=== PATIENT | female | born 1955 | race Caucasian/White ===

== ENCOUNTER 2020-03-07 08:05 | Inpatient (IN) ==
[2020-03-07] MEDS ORDERED: ONDANSETRON 4 MG/2 ML VIAL IV ONE (08:39)
--- NOTE | 2020-03-07 08:46 | XRay Report ---
INDICATION: left knee swelling/injury/pain TECHNIQUE: AP and lateral femur COMPARISON: None. FINDINGS: Previous left total hip arthroplasty. There is a spiral fracture of the left femoral diaphysis six bending to the distal metaphysis. Fracture begins caudal to the left femoral stem. There is mild posterior angulation and anterior displacement. IMPRESSION: 1. Spiral fracture of the left femoral diaphysis extending to the distal metaphysis 2. Anterior displacement and posterior angulation 3. Left total hip arthroplasty. Fracture begins caudal to the left femoral stem Interpreted and Authenticated by: Cornel Rai 03/07/20
[2020-03-07] MEDS ORDERED: 0.9 % SODIUM CHLORIDE 1,000 ML IV ONE (08:47)
[2020-03-07] MEDS: HYDROmorphone 0.5 MG/0.5 ML SYRINGE IV PRN ×5 (08:56→21:10)
--- NOTE | 2020-03-07 08:59 | XRay Report ---
INDICATION: Pre-op TECHNIQUE: AP semiupright chest x-ray COMPARISON: None FINDINGS:Bilateral shoulder arthroplasty Lungs:Lungs are negative. No focal pulmonary parenchymal infiltrate or mass Heart, vascular:No significant cardiomegaly. Pulmonary vascularity is normal. No pulmonary edema or pulmonary congestion Mediastinum, bella:No mediastinal widening. No hilar mass Pleura:No pleural fluid. No pleural-based mass or calcification Skeletal:Negative. IMPRESSION: Negative AP chest x-ray Interpreted and Authenticated by: Cornel Rai 03/07/20
--- NOTE | 2020-03-07 09:17 | Emergency Department Note ---
Lower Extremity Injury HPI General Chief Complaint: Extremity Injury, Lower Stated Complaint: left knee pain after jumping into pool Time Seen by Provider: 03/07/20 08:39 Source: patient, EMS and RN notes reviewed Mode of arrival: EMS Limitations: no limitations History of Present Illness HPI Narrative: Narrative: This patient injured her left distal femur jumping into a pool this morning. She does have a displaced fracture of the distal femur. No other injuries. She ate at 6:00 this morning and has no significant health issues. She has had some joint replacements including the left hip. complaint: leg injury Onset (ago): minute(s) Injury: Left: thigh Type of Injury: blunt Place: other Severity: moderate Improves with: rest Worsens with: movement Context: jumping Other symptoms: none Related Data Home Medications Medication Instructions Recorded Confirmed acetaminophen 650 mg 1,300 mg PO QDAY tab 12/20/19 03/07/20 tablet,extended release ibuprofen-diphenhydramine citrate 2 cap PO QHS 12/20/19 03/07/20 200 mg-38 mg tablet multivitamin with iron-mineral 1 tab PO DAILY 12/20/19 03/07/20 naproxen sodium 220 mg tablet 440 mg PO ONCE PRN tab 12/20/19 03/07/20 nabumetone 750 mg tablet 750 mg PO BID 01/05/20 03/07/20 Previous Rx's Medication Instructions Recorded oxybutynin chloride 5 mg 5 mg PO QDAY #30 tab 01/05/20 tablet,extended release 24 hr Allergies Allergy/AdvReac Type Severity Reaction Status Date / Time No Known Drug Allergies Allergy Verified 03/07/20 08:08 Review of Systems ROS ROS Narrative: Narrative: All systems ED: reviewed and negative except as stated. PFSH Narrative Patient History Narrative: Narrative: Medical/Surgical/Family History All Active Problems (Updated 03/08/20 @ 07:12 by Emmanuel Weeks MD) Closed femur fracture (Acute) Incontinence (Acute) Encounter to establish care (Acute) Medicare welcome visit (Acute) History of tubal ligation (Acute) History of replacement of both shoulder joints (Acute) History of total hip replacement (Acute ~2018) Osteoarthritis (Acute) Arthritis (Acute) Medical History (Updated 03/08/20 @ 07:12 by Emmanuel Weeks MD) Arthritis (Acute) Encounter to establish care (Acute) Incontinence (Acute) Medicare welcome visit (Acute) Osteoarthritis (Acute) Surgical History History of replacement of both shoulder joints (Acute) 2019, 2016 History of total hip replacement (Acute ~2018) History of tubal ligation (Acute) Family History Mother Dementia Father Dementia Social History Smoking Status: Former smoker Alcohol Intake Frequency: a few times a week Substance Use: does not use Exam Narrative Narrative: Narrative: General Limitations: no limitations Head Head: Present atraumatic, normocephalic and normal inspection Eye Eye: Present normal appearance and EOMI; Absent scleral icterus and conjunctival injection ENT ENT: Present normal exam, normal oropharynx and mucous membranes moist Neck Neck: Present normal inspection and full ROM Chest Chest: Present normal inspection and symmetric chest wall rise Respiratory Respiratory: Present normal lung sounds bilaterally Cardiovascular Cardiovascular: Present regular rate, normal rhythm and normal heart sounds Adbominal Abdominal: Present soft; Absent distention and tenderness Extremities Extremities: Present other (Left distal thigh is swollen and diffusely tender. No breaks in the skin. Good pulses in the feet.) Neurological Neurological: Present alert Psychiatric Psychiatric: Present normal affect Skin Skin: Present warm (WNL) and dry; Absent diaphoresis Course Vital Signs Vital signs: Vital Signs Temperature 97.7 F 03/07/20 08:06 Pulse Rate 64 03/07/20 08:06 Respiratory Rate 20 03/07/20 08:06 Blood Pressure 138/74 03/07/20 08:06 Pulse Oximetry (%) 98 03/07/20 08:06 Temperature 98.9 F 03/08/20 03:29 Pulse Rate 87 03/08/20 03:29 Respiratory Rate 16 03/08/20 03:29 Blood Pressure 102/56 03/08/20 03:29 Pulse Oximetry (%) 95 03/08/20 03:29 MDM MDM Narrative Medical decision making narrative: Narrative: I discussed this case with Dr. Britton the orthopedist and Dr. Artis the hospitalist will admit the patient to the hospital. Lab Data Lab results reviewed: Yes I reviewed the patient's lab results. Result diagrams: 03/08/20 06:00 03/07/20 09:00 Labs: Lab Results 03/07/20 03/07/20 Range/Units 09:00 09:00 WBC 6.4 (4.5-11.0) K/mcL RBC 4.24 (4.00-5.20) M/mcL Hgb 13.5 (12.0-15.0) g/dL Hct 40.9 (36.0-48.0) % MCV 96.5 (80.0-100.0) fL MCH 31.8 (26.0-34.0) pg MCHC 33.0 (31.0-36.0) g/dL RDW 12.7 (11.5-14.5) % Plt Count 231 (140-440) K/mcL MPV 9.6 (7.4-10.4) fL Neut % (Auto) 58.4 (38.0-78.0) % Lymph % (Auto) 29.5 (15.0-49.0) % [place] % (Auto) 9.7 (1.0-12.0) % Eos % (Auto) 1.9 (0.0-7.0) % Baso % (Auto) 0.5 (0.0-2.0) % Lymph # (Auto) 1.89 (1.50-4.80) K/mcL [place] # (Auto) 0.62 (0.10-0.90) K/mcL Eos # (Auto) 0.12 (0.00-0.70) K/mcL Baso # (Auto) 0.03 (0.00-0.20) K/mcL Absolute Neutrophils 3.74 (1.80-8.00) K/mcL Sodium 138 (133-145) mmol/L Potassium 3.9 (3.3-5.1) mmol/L Chloride 101 (96-108) mmol/L Carbon Dioxide 24 (22-30) mmol/L Anion Gap 13.0 (8.0-16.0) BUN 18 (8-23) mg/dL Creatinine 0.6 (0.6-1.1) mg/dL GFR Calculation 95 Glucose 120 H (70-105) mg/dL Calcium 8.6 (8.6-10.4) mg/dL Total Bilirubin 0.4 (0.1-1.0) mg/dL AST 27 (<32) U/L ALT 25 (<40) U/L Alkaline Phosphatase 52 (39-117) U/L Total Protein 6.3 (5.9-8.4) gm/dL Albumin 3.9 (3.2-5.2) gm/dL Globulin 2.4 (2.2-3.7) gm/dL Albumin/Globulin Ratio 1.6 (1.0-2.3) Radiology Data Radiology results reviewed: Yes I reviewed the patient's radiology results. Radiology results narrative: She has displaced left femur fracture distally. Discharge Plan Patient/Caregiver Discharge Instructions Pt seen by FOOD AND NUTRITION SERVICES SUPERVISOR/PA only: No Clinical Impression: Closed femur fracture Patient Disposition: Xfer As Inpt ([facility]) Condition: Fair Discharge Date/Time: 03/07/20 10:27
[2020-03-07 09:55] LABS: Basophils # (Auto) 0.03 K/mcL (0.00-0.20); Basophils % (Auto) 0.5 % (0.0-2.0); Eosinophils # (Auto) 0.12 K/mcL (0.00-0.70); Eosinophils % (Auto) 1.9 % (0.0-7.0); Hematocrit 40.9 % (36.0-48.0); Hemoglobin 13.5 g/dL (12.0-15.0); Lymphocytes # (Auto) 1.89 K/mcL (1.50-4.80); Lymphocytes % (Auto) 29.5 % (15.0-49.0); Mean Cell Volume 96.5 fL (80.0-100.0); Mean Platelet Volume 9.6 fL (7.4-10.4); Monocytes # (Auto) 0.62 K/mcL (0.10-0.90); Monocytes % (Auto) 9.7 % (1.0-12.0); Neutrophils % (Auto) 58.4 % (38.0-78.0); Platelet Count 231 K/mcL (140-440); RBC 4.24 M/mcL (4.00-5.20); Red Cell Distribution Width 12.7 % (11.5-14.5); WBC 6.4 K/mcL (4.5-11.0)
--- NOTE | 2020-03-07 10:02 | Internal Med History&Physical ---
HPI History of Present Illness Patient information: Note initiated : 03/07/20 at 10:01 am Service Date, if different from initiated Date: [] Patient: Demi Gaspar a 65 y/o F admitted on for Lt Knee Pain After Jumping In Pool. Chief Complaint: Left femur fracture following a fall History of present illness: Ms. Gaspar is a 65 year old F fairly healthy with history of degenerative joint disease. Patient was at the pool and jumped at the deep end however her left leg got caught on the second ledge and ended up with left knee and thigh pain. She was brought into the ER initial work-up was consistent with spinal left femoral diaphysis fracture extending to metaphysis. Orthopedics was consulted and Advised patient to be admitted to the hospitalist service while she will undergo operative intervention later this evening. At the time of my evaluation patient is alert and oriented. She denies active distress. Pain in good control following Dilaudid. She denies lightheadedness dizziness or precipitating events prior to fall. It was a purely mechanical injury due to her left foot getting caught during the jump in the pool. She denies recent hospitalization/history of cardiac stent/history of CVA or diabetes or kidney disease. Review of systems A 10 point review system was performed and is negative except for ones discussed above PFSH PFSH All Active Problems Incontinence (Acute) Encounter to establish care (Acute) Medicare welcome visit (Acute) History of tubal ligation (Acute) History of replacement of both shoulder joints (Acute) History of total hip replacement (Acute ~2018) Osteoarthritis (Acute) Arthritis (Acute) Medical History Arthritis (Acute) Encounter to establish care (Acute) Incontinence (Acute) Medicare welcome visit (Acute) Osteoarthritis (Acute) Surgical History History of replacement of both shoulder joints (Acute) 2019, 2015 History of total hip replacement (Acute ~2018) History of tubal ligation (Acute) Family History Mother Dementia Father Dementia Social History marital status: occupational status: retired smoking status: Never smoker alcohol intake frequency: a few times a week substance use type: does not use MEDS/ALLERGIES Home Medications and Allergies Home Medications Medication Instructions Recorded Confirmed Type acetaminophen 650 mg 1,300 mg PO QDAY tab 12/20/19 03/07/20 History tablet,extended release ibuprofen-diphenhydramine citrate 2 cap PO QHS 12/20/19 03/07/20 History 200 mg-38 mg tablet multivitamin with iron-mineral PO 12/20/19 01/09/20 History naproxen sodium 220 mg tablet 440 mg PO ONCE PRN tab 12/20/19 03/07/20 History nabumetone 750 mg tablet 750 mg PO BID 01/05/20 03/07/20 History oxybutynin chloride 5 mg 5 mg PO QDAY #30 tab 01/05/20 03/07/20 Rx tablet,extended release 24 hr Allergies Allergy/AdvReac Type Severity Reaction Status Date / Time No Known Drug Allergies Allergy Verified 03/07/20 08:08 EXAM Constitutional Vitals: Temp Pulse Resp BP Pulse Ox 97.7 F 78 20 141/79 97 03/07/20 08:06 03/07/20 09:31 03/07/20 08:06 03/07/20 09:31 03/07/20 09:31 Minimal anxiety but alert oriented Head normocephalic Oral cavity moist No ear nose discharge Eye movement symmetrical Neck supple no lymphadenopath Regular rhythm Nonlabored breathing Nondistended nontender abdomen Left lower extremities significantly painful/swollen mid thigh region along with ecchymosis. No lymphedema/clubbing Skin no suspicious lesion Psych no hallucination Neuro normal higher function DATA Data Completed and Pending Labs: Labs from last 24 hours 03/07/20 03/07/20 09:00 09:00 WBC 6.4 RBC 4.24 Hgb 13.5 Hct 40.9 MCV 96.5 MCH 31.8 MCHC 33.0 RDW 12.7 Plt Count 231 MPV 9.6 Neut % (Auto) 58.4 Lymph % (Auto) 29.5 [place] % (Auto) 9.7 Eos % (Auto) 1.9 Baso % (Auto) 0.5 Lymph # (Auto) 1.89 [place] # (Auto) 0.62 Eos # (Auto) 0.12 Baso # (Auto) 0.03 Absolute Neutrophils 3.74 Sodium Pending Potassium Pending Chloride Pending Carbon Dioxide Pending Anion Gap Pending BUN Pending Creatinine Pending GFR Calculation Pending Glucose Pending Calcium Pending Total Bilirubin Pending AST Pending ALT Pending Alkaline Phosphatase Pending Total Protein Pending Albumin Pending Globulin Pending Albumin/Globulin Ratio Pending A/P Narrative A/P Narrative: * Left femur fracture-orthopedic consulted. Will undergo operative interventions later today. Continue NPO. * Pain management on as needed opioids * Preop risk evaluation-based on RCR[employer] [place] heart association risk stratification patient is a low to moderate risk operative candidate. No prior history of CVA/CAD/diabetes/renal failure or CHF. However surgery and anesthesia specific risks will be addressed by individual care providers. * Full code * prophylaxis SCDs Plan * Inpatient admission * Orthopedic consult * Keep n.p.o. * Pain management * Review postop Time Spent With Patient Time: Total time spent is greater than 50% in coordination of care (as documented) at patient's floor/unit and/or counseling patient:
[2020-03-07 10:37] LABS: ALT/SGPT 25 U/L (<40); AST/SGOT 27 U/L (<32); Albumin 3.9 gm/dL (3.2-5.2); Albumin/Globulin Ratio 1.6 (1.0-2.3); Alkaline Phosphatase 52 U/L (39-117); Bilirubin,Total 0.4 mg/dL (0.1-1.0); Blood Urea Nitrogen 18 mg/dL (8-23); Calcium 8.6 mg/dL (8.6-10.4); Carbon Dioxide 24 mmol/L (22-30); Chloride 101 mmol/L (96-108); Globulin 2.4 gm/dL (2.2-3.7); Glomerular Filtration Rate 95; Glucose 120 mg/dL (70-105)
[2020-03-07] MEDS ORDERED: POTASSIUM CHLORIDE 40 MEQ in DEXTROSE 5% IN WATER 500 ML IV PRN (10:38)
[2020-03-07] MEDS ORDERED: ONDANSETRON 4 MG ODT TABLET SL PRN (10:38)
[2020-03-07] MEDS ORDERED: HYDROcodone/APAP 5/325MG TABLET PO PRN (10:38)
[2020-03-07] MEDS ORDERED: BISACODYL 10 MG SUPP.RECT PR PRN ×2 (10:38→18:08)
[2020-03-07] MEDS ORDERED: CALCIUM CHLORIDE 1,000 MG/10 ML SYRINGE IV PRN (10:38)
[2020-03-07] MEDS ORDERED: MAGNESIUM SULFATE 2 GM/50 ML BAG IV PRN (10:38)
[2020-03-07] MEDS ORDERED: ACETAMINOPHEN 325 MG TABLET PO PRN (10:38)
[2020-03-07] MEDS ORDERED: POLYETHYLENE GLYCOL 3350 17 GM PACKET PO PRN (10:38)
[2020-03-07] MEDS ORDERED: POTASSIUM CHLORIDE 20 MEQ PACKET PO PRN (10:38)
[2020-03-07] MEDS ORDERED: ACETAMINOPHEN 650 MG/65 ML BAG IV PRN (10:38)
[2020-03-07] MEDS: 0.9 % SODIUM CHLORIDE 1,000 ML IV SCH (11:44)
[2020-03-07] MEDS ORDERED: ceFAZolin 2 GM in DEXTROSE 5% IN WATER 50 ML IV SCH ×2 (13:30→18:15)
[2020-03-07] MEDS ORDERED: PROPOFOL 200 MG/20 ML VIAL IV ONE (15:24)
[2020-03-07] MEDS ORDERED: DEXAMETHASONE 10 MG/ML VIAL ONE (15:24)
[2020-03-07] MEDS ORDERED: fentaNYL 250 MCG/5 ML VIAL IV ONE (15:24)
[2020-03-07] MEDS ORDERED: ONDANSETRON 4 MG/2 ML VIAL ONE (15:24)
[2020-03-07] MEDS ORDERED: LIDOCAINE HCL/PF 100 MG/5 ML SYRINGE IV ONE (15:24)
[2020-03-07] MEDS ORDERED: KETAMINE 100 MG/ML ML ONE (15:24)
[2020-03-07] MEDS ORDERED: TRANEXAMIC ACID 1,000 MG/10 ML VIAL IV ONE ×3 (15:24→19:06)
[2020-03-07 15:53] LABS: Appearance,Urine CLEAR (Clear); Bilirubin,Urine Negative (Negative); Color,Urine YELLOW; Culture Indicated,Urine yes; Glucose,Urine (UA) Negative (Negative); Ketones,Urine 5 mg/dL (Negative); Leukocyte Esterase,Urine 250 /ug (Negative); Mucus,Urine FEW /hpf; Nitrate,Urine Negative (Negative); Protein,Urine 30 mg/dL (Negative); Specific Gravity,Urine 1.019 (1.000-1.035); Urine Blood Negative (Negative); Urine RBC 2 /hpf (0-1); Urine Squamous Epithelial Cell 1 /hpf (0-4); Urine Transitional Epi Cells < 1 /hpf (0-2); Urine WBC 14 /hpf (0-4); Urobilinogen,Urine Negative
[2020-03-07] MEDS: 0.9 % SODIUM CHLORIDE 10 ML SYRINGE IV SCH ×2 (16:05→22:29)
[2020-03-07] MEDS ORDERED: PROMETHAZINE 25 MG/ML VIAL IV PRN (17:50)
[2020-03-07] MEDS ORDERED: ONDANSETRON 4 MG/2 ML VIAL IV PRN (17:50)
[2020-03-07] MEDS ORDERED: IPRATROPIUM/ALBUTEROL 3 ML AMPUL.NEB NEB PRN (17:50)
[2020-03-07] MEDS ORDERED: ACETAMINOPHEN 1,000 MG/100 ML BAG IV ONE (17:50)
[2020-03-07] MEDS ORDERED: LACTATED RINGERS 250 ML IV PRN (17:50)
[2020-03-07] MEDS ORDERED: HYDROmorphone 0.5 MG/0.5 ML SYRINGE IV PRN (17:50)
[2020-03-07] MEDS ORDERED: NALOXONE HCL 0.4 MG/ML VIAL IV PRN (17:50)
[2020-03-07] MEDS ORDERED: diphenhydrAMINE 50 MG/ML VIAL IV PRN (17:50)
[2020-03-07] MEDS ORDERED: LACTATED RINGERS 1,000 ML IV SCH (18:00)
[2020-03-07] MEDS ORDERED: FLEETS ADULT ENEMA PR PRN (18:08)
[2020-03-07] MEDS ORDERED: morphine 4 MG/ML VIAL IV PRN (18:08)
[2020-03-07] MEDS ORDERED: MAGNESIUM HYDROXIDE 30 ML ORAL.SUSP PO PRN (18:08)
--- NOTE | 2020-03-07 18:08 | Brief Operative Note ---
Brief Operative Note Date of procedure: 03/07/20 Pre-op diagnosis: Left periprosthetic distal femur fracture, closed Post-op diagnosis: same Procedure: Open treatment internal fixation of closed Left periprosthetic comminuted distal femur fracture Grafts/Implants: Yes (Synthes distal femur locking plate with Arthrex fibertape cerclage proximal) Anesthesia: GLMA Findings: severe comminution, poor bone quality Complications: none Surgeon: Michael Britton [place] Leverman: Pravin Loaiza Estimated blood loss (cc): 500 Specimens Removed/Pathology: none sent Condition: stable Disposition: PACU
[2020-03-07] MEDS: MEPERIDINE 25 MG/ML SYRINGE IV PRN ×2 (18:55→19:13)
[2020-03-07] MEDS ORDERED: MEPERIDINE 50 MG/ML INJECTION ONE (19:00)
[2020-03-07] MEDS: fentaNYL 100 MCG/2 ML VIAL IV PRN ×2 (19:05→19:31)
[2020-03-07] MEDS: KETOROLAC 30 MG/ML VIAL IV PRN (20:13)
[2020-03-07] MEDS: ONDANSETRON 4 MG/2 ML VIAL IV PRN (20:17)
[2020-03-07] MEDS ORDERED: MELATONIN 3 MG TABLET PO PRN (21:00)
[2020-03-07] MEDS: LACTATED RINGERS 1,000 ML IV SCH (21:16)
[2020-03-07] MEDS: DOCUSATE SODIUM 100 MG CAPSULE PO SCH (21:17)
[2020-03-07] MEDS: SENNOSIDES 1 TABLET PO SCH (21:17)
[2020-03-07] MEDS: SENNOSIDES/DOCUSATE SODIUM 1 TAB TABLET PO SCH (21:17)
[2020-03-07] MEDS: ceFAZolin 1 GM VIAL IV SCH (22:29)
[2020-03-08] MEDS: ONDANSETRON 4 MG/2 ML VIAL IV PRN (00:20)
[2020-03-08] MEDS: LACTATED RINGERS 1,000 ML IV SCH ×3 (00:20→18:05)
[2020-03-08] MEDS: HYDROcodone/APAP 10/325MG TABLET PO PRN ×7 (00:26→23:55)
[2020-03-08] MEDS: BENZOCAINE/MENTHOL 1 LOZENGE PO PRN ×2 (00:47→10:20)
[2020-03-08] MEDS: KETOROLAC 30 MG/ML VIAL IV PRN ×2 (02:42→19:34)
[2020-03-08] MEDS: HYDROmorphone 0.5 MG/0.5 ML SYRINGE IV PRN (03:13)
--- NOTE | 2020-03-08 05:46 | XRay Report ---
INDICATION: left distal femur jo prosthetic fracture TECHNIQUE: Intraoperative fluoroscopy and spot films utilized during open reduction and internal fixation of left femoral fracture. 1.1 minutes fluoroscopy and 5.31 mGy exposure utilized IMPRESSION: Intraoperative fluoroscopy and spot films as above Interpreted and Authenticated by: Cornel Rai 03/08/20
[2020-03-08] MEDS: ceFAZolin 1 GM VIAL IV SCH ×2 (05:50→05:51)
--- NOTE | 2020-03-08 05:50 | XRay Report ---
INDICATION: left distal femur jo prosthetic orif TECHNIQUE: AP and crosstable lateral left femur COMPARISON: Preoperative evaluation dated 03/07/2020 FINDINGS: Status post open reduction internal fixation of left femoral diaphyseal spiral fracture. Plate and screw fixation. Alignment is anatomic IMPRESSION: Status post open reduction internal fixation of left femoral fracture. Interpreted and Authenticated by: Cornel Rai 03/08/20
[2020-03-08] MEDS: 0.9 % SODIUM CHLORIDE 1,000 ML IV SCH (05:55)
[2020-03-08] MEDS: 0.9 % SODIUM CHLORIDE 10 ML SYRINGE IV SCH ×3 (05:55→20:17)
[2020-03-08 06:53] LABS: Basophils # (Auto) 0.01 K/mcL (0.00-0.20); Basophils % (Auto) 0.1 % (0.0-2.0); Eosinophils # (Auto) 0.01 K/mcL (0.00-0.70); Eosinophils % (Auto) 0.1 % (0.0-7.0); Hematocrit 26.5 % (36.0-48.0); Hemoglobin 8.8 g/dL (12.0-15.0); Lymphocytes # (Auto) 1.44 K/mcL (1.50-4.80); Lymphocytes % (Auto) 16.2 % (15.0-49.0); Mean Cell Volume 97.4 fL (80.0-100.0); Mean Corpuscular HGB Conc 33.2 g/dL (31.0-36.0); Mean Platelet Volume 9.7 fL (7.4-10.4); Monocytes # (Auto) 1.05 K/mcL (0.10-0.90); Monocytes % (Auto) 11.8 % (1.0-12.0); Neutrophils % (Auto) 71.8 % (38.0-78.0); Platelet Count 198 K/mcL (140-440); RBC 2.72 M/mcL (4.00-5.20); Red Cell Distribution Width 12.8 % (11.5-14.5); WBC 8.9 K/mcL (4.5-11.0)
[2020-03-08 07:20] LABS: INR 1.1 (0.9-1.1); Prothrombin Time 14.5 sec (11.9-14.5)
--- NOTE | 2020-03-08 07:33 | Orthopedic Progress Note ---
SUBJECTIVE Subjective Patient information: Note initiated : 03/08/20 at 7:32 am Service Date, if different from initiated Date: [] Patient: Demi Gaspar 65 y/o F admitted on 03/07/20 for Lt Knee Pain After Jumping In Pool. Chief Complaint: Doing ok. Concerned about discharge plan. Constitutional Vitals: Vital Signs Temp Pulse Resp BP Pulse Ox 98.9 F 87 16 102/56 95 03/08/20 03:29 03/08/20 03:29 03/08/20 03:29 03/08/20 03:29 03/08/20 03:29 Period Temp Pulse Resp BP Sys/Mccallum Pulse Ox Last 24 Hr 97.1 F-99.7 F 63-92 - 100-168/48-135 94-100 Intake and Output 03/07/20 03/08/20 03/08/20 21:59 05:59 13:59 Intake Total 270 800 Output Total 400 Balance 270 400 Weight 207 lb 14.4 oz Intake & Output: Intake & Output 03/07/20 03/08/20 03/08/20 21:59 05:59 13:59 Intake Total 270 800 Output Total 400 Balance 270 400 Weight 207 lb 14.4 oz Intake: IV 150 Ancef 2 gm In Dextrose 5% in 50 Water 50 ml @ 100 mls/hr IV PREOP ANNA Rx#:[id number] Oral 120 800 Output: Urine Catheter Amount 400 Other: Meal Dinner Percent of Meal Consumed 50% Feeding Ability Assist with Tray Set Up Urine Appearance Clear Clear Uretheral (Heard) Clear Urine Color Pale Pale Uretheral (Heard) Bright Yellow Urine Odor Uretheral (Heard) Normal OBJ DATA Labs CBC & Chem 7: 03/08/20 06:00 03/07/20 09:00 Labs: Abnormal Lab Results 03/08/20 03/07/20 03/07/20 06:00 13:20 09:00 RBC 2.72 L Hgb 8.8 L Hct 26.5 L Lymph # (Auto) 1.44 L [place] # (Auto) 1.05 H Glucose 120 H Urine Protein 30 A Urine Ketones 5 A Ur Leukocyte Esterase 250 A Urine RBC 2 H Urine WBC 14 H Urine Mucus Few A Bandages c/d/i NVI-distal Meds: Medications Acetaminophen (Tylenol) 650 mg PO Q4-6HP PRN; Protocol PRN Reason: Per Pain Protocol/Fever > 101 Hydrocodone Bitart/Acetaminophen ([place] 5/325mg) 1 - 2 tab PO Q4HP PRN; Protocol PRN Reason: Per Pain Protocol Hydrocodone Bitart/Acetaminophen ([place] 10/325mg) 0 tab PO Q4HP PRN; Protocol PRN Reason: Per Pain Protocol Last Admin: 03/08/20 05:49 Dose: 1 tab Documented by: Bisacodyl (Dulcolax) 10 mg MT Q2-3DAYS PRN PRN Reason: Constipation Bisacodyl (Dulcolax) 10 mg MT Q2-3DAYS PRN PRN Reason: Constipation Docusate Sodium (Colace) 100 mg PO BID [facility] Last Admin: 03/07/20 21:17 Dose: Not Given Documented by: Hydromorphone HCl (Dilaudid) 0.25 - 0.5 mg IV Q4HP PRN; Protocol PRN Reason: Per Pain Protocol Last Admin: 03/08/20 03:13 Dose: 0.5 mg Documented by: Potassium Chloride 40 meq/ (Dextrose) 520 mls @ 130 mls/hr IV UD PRN PRN Reason: K+ = or < 3.5 Acetaminophen (Ofirmev) 650 mg in 65 mls @ 130 mls/hr IV Q6HP PRN; Protocol PRN Reason: Per Pain Protocol/Fever > 101 Magnesium Sulfate (Magnesium Sulfate) 2 gm in 50 mls @ 50 mls/hr IV UD PRN PRN Reason: MG = or < 1.7 Sodium Chloride (Sodium Chloride 0.9%) 1,000 mls @ 50 mls/hr IV .Q20H [facility] Stop: 03/09/20 22:37 Last Admin: 03/08/20 05:55 Dose: Not Given Documented by: Lactated Ringer's (Lactated Ringers) 1,000 mls @ 125 mls/hr IV .Q8H [facility] Last Admin: 03/08/20 00:20 Dose: 125 mls/hr Documented by: Iron Carb/Multivit/[place]/Folic Acid (Multivitamin W/Minerals) 1 tab PO DAILY [facility] Ketorolac Tromethamine (Toradol) 30 mg IV Q6HP PRN; Protocol PRN Reason: Per Pain Protocol Stop: 03/09/20 18:12 Last Admin: 03/08/20 02:42 Dose: 30 mg Documented by: Magnesium Hydroxide (Milk Of Magnesia) 30 ml PO BIDP PRN PRN Reason: Constipation Melatonin (Melatonin 3mg Tablet) 3 mg PO HSP PRN PRN Reason: Insomnia Morphine Sulfate (Morphine) 0 mg IV Q1HP PRN; Protocol PRN Reason: Per Pain Protocol Ondansetron HCl (Zofran Odt) 4 mg SL Q4-6HP PRN; Protocol PRN Reason: Nausea And Vomiting Ondansetron HCl (Zofran) 4 mg IV Q4-6HP PRN; Protocol PRN Reason: Nausea And Vomiting Last Admin: 03/08/20 00:20 Dose: 4 mg Documented by: Oxybutynin Chloride (Ditropan Xl) 5 mg PO QDAY [facility] Polyethylene Glycol (Miralax) 17 gm PO DAILYP PRN PRN Reason: Constipation Potassium Chloride (Klor-Con) 40 meq PO DAILYP PRN PRN Reason: K+ < 3.5 Senna (Senokot) 2 tab PO [facility] Last Admin: 03/07/20 21:17 Dose: Not Given Documented by: Senna/Docusate Sodium (Senna Plus Tablet) 1 tab PO HS [facility] Last Admin: 03/07/20 21:17 Dose: Not Given Documented by: Sodium Biphosphate/Sodium Phosphate (Fleets Adult) 1 dose MT Q3-4DAYS PRN PRN Reason: Constipation Sodium Chloride (Saline Flush) 10 ml IV Q8 ANNA Last Admin: 03/08/20 05:55 Dose: 10 ml Documented by: Throat Lozenges (Cepacol) 1 lozenge PO PRN PRN PRN Reason: Sore Throat Last Admin: 03/08/20 00:47 Dose: 1 lozenge Documented by: Warfarin Sodium (Coumadin Per Pharmacy) 1 order PO UD ANNA A/P Time Spent With Patient Time: Total time spent is greater than 50% in coordination of care (as documented) at patient's floor/unit and/or counseling patient:
[2020-03-08 07:58] LABS: ALT/SGPT 21 U/L (<40); AST/SGOT 46 U/L (<32); Albumin 2.9 gm/dL (3.2-5.2); Albumin/Globulin Ratio 1.8 (1.0-2.3); Alkaline Phosphatase 34 U/L (39-117); Bilirubin,Direct < 0.2 mg/dL (<0.3); Bilirubin,Total 0.2 mg/dL (0.1-1.0); Blood Urea Nitrogen 17 mg/dL (8-23); Calcium 8.1 mg/dL (8.6-10.4); Carbon Dioxide 24 mmol/L (22-30); Chloride 101 mmol/L (96-108); Globulin 1.6 gm/dL (2.2-3.7); Glomerular Filtration Rate 90; Glucose 130 mg/dL (70-105); Lactate Dehydrogenase 179 U/L (135-225); Phosphorous 2.4 mg/dL (2.5-4.5); Triglycerides 65 mg/dL (<150); Uric Acid 2.9 mg/dL (2.5-8.0)
[2020-03-08] MEDS: MULTIVIT,THER IRON,CA,FA & MIN 1 TABLET PO SCH (09:01)
[2020-03-08] MEDS: DOCUSATE SODIUM 100 MG CAPSULE PO SCH ×2 (09:01→20:16)
[2020-03-08] MEDS: OXYBUTYNIN CHLORIDE 5 MG TAB.XL.24H PO SCH (09:02)
[2020-03-08] MEDS ORDERED: FLU VACC QS2020-21(6MOS UP)/PF 60 MCG/0.5 ML SYRINGE IM ONE (10:00)
--- NOTE | 2020-03-08 10:31 | Internal Med Progress Note ---
SUBJECTIVE Subjective Patient information: Note initiated : 03/08/20 at 10:29 am Service Date, if different from initiated Date: [] Patient: Demi Gaspar a 65 y/o F admitted on 03/07/20 for Lt Knee Pain After Jumping In Pool. History of present illness: Ms. Gaspar is a 65 year old F fairly healthy with history of degenerative joint disease. Patient was at the pool and jumped at the deep end however her left leg got caught on the second ledge and ended up with left knee and thigh pain. She was brought into the ER initial work-up was consistent with spinal left femoral diaphysis fracture extending to metaphysis. Orthopedics was consulted and Advised patient to be admitted to the [facility] while she will undergo operative intervention later this evening. At the time of my evaluation patient is alert and oriented. She denies active distress. Pain in good control following Dilaudid. She denies lightheadedness dizziness or precipitating events prior to fall. It was a purely mechanical injury due to her left foot getting caught during the jump in the pool. She denies recent hospitalization/history of cardiac stent/history of CVA or diabetes or kidney disease. -postop day 1. Doing well. No overnight events. Pain in good control. Anticipate SNF transfer in 48 hours. Case management coordinating. Continue directed therapies and postoperative care per orthopedics. Constitutional Vitals: Vital Signs Temp Pulse Resp BP Pulse Ox 98.1 F 93 H 16 92/50 95 03/08/20 08:46 03/08/20 08:46 03/08/20 08:46 03/08/20 08:46 03/08/20 08:46 Period Temp Pulse Resp BP Sys/Mccallum Pulse Ox Last 24 Hr 97.1 F-99.7 F 63-93 - 92-154/48-135 94-100 Intake and Output 03/07/20 03/08/20 03/08/20 21:59 05:59 13:59 Intake Total 270 800 480 Output Total 400 Balance 270 400 480 Weight 94.302 kg alert oriented no anxiety No significant postoperative site swelling or pain Nonlabored breathing Intake & Output: Intake & Output 03/07/20 03/08/20 03/08/20 21:59 05:59 13:59 Intake Total 270 800 480 Output Total 400 Balance 270 400 480 Weight 94.302 kg Intake: IV 150 Ancef 2 gm In Dextrose 5% in 50 Water 50 ml @ 100 mls/hr IV PREOP ANNA Rx#:[id number] Oral 120 800 480 Output: Urine Catheter Amount 400 Other: Meal Dinner Breakfast Percent of Meal Consumed 50% 100% Feeding Ability Assist with Tray Set Up Independent Urine Appearance Clear Clear Uretheral (Heard) Clear Clear Urine Color Pale Pale Uretheral (Heard) Bright Yellow Bright Yellow Urine Odor Uretheral (Heard) Normal OBJ DATA Labs CBC & Chem 7: 03/08/20 06:00 03/08/20 06:00 Labs: Abnormal Lab Results 03/08/20 03/08/20 03/07/20 06:00 06:00 13:20 RBC 2.72 L Hgb 8.8 L Hct 26.5 L Lymph # (Auto) 1.44 L [place] # (Auto) 1.05 H Glucose 130 H Calcium 8.1 L Phosphorus 2.4 L AST 46 H Alkaline Phosphatase 34 L Total Protein 4.5 L Albumin 2.9 L Globulin 1.6 L Urine Protein 30 A Urine Ketones 5 A Ur Leukocyte Esterase 250 A Urine RBC 2 H Urine WBC 14 H Urine Mucus Few A 03/07/20 09:00 RBC Hgb Hct Lymph # (Auto) [place] # (Auto) Glucose 120 H Calcium Phosphorus AST Alkaline Phosphatase Total Protein Albumin Globulin Urine Protein Urine Ketones Ur Leukocyte Esterase Urine RBC Urine WBC Urine Mucus Meds: Medications Acetaminophen (Tylenol) 650 mg PO Q4-6HP PRN; Protocol PRN Reason: Per Pain Protocol/Fever > 101 Hydrocodone Bitart/Acetaminophen ([place] 5/325mg) 1 - 2 tab PO Q4HP PRN; Protocol PRN Reason: Per Pain Protocol Hydrocodone Bitart/Acetaminophen ([place] 10/325mg) 0 tab PO Q4HP PRN; Protocol PRN Reason: Per Pain Protocol Last Admin: 03/08/20 10:06 Dose: 1 tab Documented by: Bisacodyl (Dulcolax) 10 mg OK Q2-3DAYS PRN PRN Reason: Constipation Bisacodyl (Dulcolax) 10 mg OK Q2-3DAYS PRN PRN Reason: Constipation Docusate Sodium (Colace) 100 mg PO BID [facility] Last Admin: 03/08/20 09:01 Dose: 100 mg Documented by: Hydromorphone HCl (Dilaudid) 0.25 - 0.5 mg IV Q4HP PRN; Protocol PRN Reason: Per Pain Protocol Last Admin: 03/08/20 03:13 Dose: 0.5 mg Documented by: Potassium Chloride 40 meq/ (Dextrose) 520 mls @ 130 mls/hr IV UD PRN PRN Reason: K+ = or < 3.5 Acetaminophen (Ofirmev) 650 mg in 65 mls @ 130 mls/hr IV Q6HP PRN; Protocol PRN Reason: Per Pain Protocol/Fever > 101 Magnesium Sulfate (Magnesium Sulfate) 2 gm in 50 mls @ 50 mls/hr IV UD PRN PRN Reason: MG = or < 1.7 Sodium Chloride (Sodium Chloride 0.9%) 1,000 mls @ 50 mls/hr IV .Q20H [facility] Stop: 03/09/20 22:37 Last Admin: 03/08/20 05:55 Dose: Not Given Documented by: Lactated Ringer's (Lactated Ringers) 1,000 mls @ 125 mls/hr IV .Q8H [facility] Last Admin: 03/08/20 00:20 Dose: 125 mls/hr Documented by: Iron Carb/Multivit/[place]/Folic Acid (Multivitamin W/Minerals) 1 tab PO DAILY [facility] Last Admin: 03/08/20 09:01 Dose: 1 tab Documented by: Ketorolac Tromethamine (Toradol) 30 mg IV Q6HP PRN; Protocol PRN Reason: Per Pain Protocol Stop: 03/09/20 18:12 Last Admin: 03/08/20 02:42 Dose: 30 mg Documented by: Magnesium Hydroxide (Milk Of Magnesia) 30 ml PO BIDP PRN PRN Reason: Constipation Melatonin (Melatonin 3mg Tablet) 3 mg PO HSP PRN PRN Reason: Insomnia Morphine Sulfate (Morphine) 0 mg IV Q1HP PRN; Protocol PRN Reason: Per Pain Protocol Ondansetron HCl (Zofran Odt) 4 mg SL Q4-6HP PRN; Protocol PRN Reason: Nausea And Vomiting Ondansetron HCl (Zofran) 4 mg IV Q4-6HP PRN; Protocol PRN Reason: Nausea And Vomiting Last Admin: 03/08/20 00:20 Dose: 4 mg Documented by: Oxybutynin Chloride (Ditropan Xl) 5 mg PO QDAY [facility] Last Admin: 03/08/20 09:02 Dose: 5 mg Documented by: Polyethylene Glycol (Miralax) 17 gm PO DAILYP PRN PRN Reason: Constipation Potassium Chloride (Klor-Con) 40 meq PO DAILYP PRN PRN Reason: K+ < 3.5 Senna (Senokot) 2 tab PO [facility] Last Admin: 03/07/20 21:17 Dose: Not Given Documented by: Senna/Docusate Sodium (Senna Plus Tablet) 1 tab PO [facility] Last Admin: 03/07/20 21:17 Dose: Not Given Documented by: Sodium Biphosphate/Sodium Phosphate (Fleets Adult) 1 dose OK Q3-4DAYS PRN PRN Reason: Constipation Sodium Chloride (Saline Flush) 10 ml IV Q8 [facility] Last Admin: 03/08/20 05:55 Dose: 10 ml Documented by: Throat Lozenges (Cepacol) 1 lozenge PO PRN PRN PRN Reason: Sore Throat Last Admin: 03/08/20 10:20 Dose: 1 lozenge Documented by: Warfarin Sodium (Coumadin Per Pharmacy) 1 order PO [facility] Warfarin Sodium (Coumadin) 5 mg PO ONCE@1400 ONE Stop: 03/08/20 14:01 A/P Narrative A/P Narrative: * Left femur fracture-postop day 1. Managed by orthopedics. Continue PT OT/case management coordinate SNF transfer * Pain management -as per orthopedics * DVT prophylaxis per orthopedics on Coumadin * Full code Plan * Continue postop care per orthopedics * Pain management/inpatient rehab * SNF transfer coordination per case management Time Spent With Patient Time: Total time spent is greater than 50% in coordination of care (as documented) at patient's floor/unit and/or counseling patient: QUALITY VTE Deep Vein Thrombosis/Pulmonary Embolism Present on Admission: No
--- NOTE | 2020-03-08 12:57 | Operative Note ---
DATE OF OPERATION: 03/07/2020 PREOPERATIVE DIAGNOSIS: Left closed periprosthetic distal femur fracture. POSTOPERATIVE DIAGNOSIS: Left closed periprosthetic distal femur fracture. PROCEDURE PERFORMED: Open treatment internal fixation of a left comminuted closed periprosthetic distal femur fracture, placing a Synthes distal femur locking plate with Arthrex suture tape cerclage. SURGEON: Michael Britton M.D. HOME INSPECTOR: Pravin Loaiza M.D. ANESTHESIA: General. DRAINS: None. SPECIMENS: None. COMPLICATIONS: None. ESTIMATED BLOOD LOSS: 500 mL. POSTOPERATIVE CONDITION: Stable. INDICATIONS: This is a 65-year-old female who has a history of a left total hip arthroplasty, who was getting ready to jump into the pool and awkwardly twisted her left leg and felt a snap and had severe pain and inability to bear weight. She was taken to the Emergency Department. X-ray showed a comminuted distal femur fracture extending almost up to her hip prosthesis. FINDINGS AT SURGERY: There was severe comminution with poor quality bone. Post implantation showed acceptable fracture alignment with stable fixation. PROCEDURE IN DETAIL: The patient had been seen preoperatively and informed consent had been obtained after discussion of risks and benefits of surgery, risks including but not limited to bleeding, possibly requiring transfusion, infection, possibly requiring implant removal and prolonged IV antibiotics, injury to nerves, blood vessels, other surrounding structures, anesthetic risks; nonunion or malunion of the fracture, failure of hardware fixation; possibility of needing further surgery. She understood these risks and wished to proceed. The correct operative site was marked and the patient was taken to the operating room, general anesthesia induced. The patient was then carefully transferred onto the fracture table and the right lower extremity was flexed and placed in a leg bills and carefully padded. The left lower extremity was placed into a boot with traction gently applied. The left leg and hip were then carefully prepped and draped in normal sterile fashion using an Ioban shower curtain drape. Timeout was performed, verifying patient name, operative site, and plan. Fluoroscopy was brought in to verify the extent of the fracture and then we started our incision distally at the lateral side of the knee. We started up about [address] and then obtained hemostasis with Bovie cautery. We continued down onto the IT band and this was split as well with Bovie. We then started splitting through the vastus lateralis muscle to get down onto the fracture and a large fracture hematoma was suctioned. We exposed the fracture site and at this point, realized this was even more comminuted than initially appeared on x-ray. We tried a 12-hole plate to see if this would give us adequate length and it did not appear to overlap the total hip stem enough so I went to a 14-hole. This did appear to give us adequate overlap of the hip stem. We then began trying to reduce the fracture. Due to the multiple fracture lines and fragments, and different muscles pulling on the different fragments, and her poor bone quality, this made reduction and placement of the plate in an acceptable position very difficult. It took quite some time using multiple different clamps and eventually getting the plate to sit as flush as possible along the lateral femur. She did have a very sharp flare to her metaphysis, which did not fit the plate optimally. We ended up getting a screw in the central hole of the distal cluster of the plate and verified we were in satisfactory position, both on AP and lateral view. I then began reducing the fracture and plate together with multiple clamps and then went up proximally, extending our excision until I had exposed nearly all of the plate proximally. I then adjusted the plate until I had it centered over the bone on the lateral view and then started clamping the plate to the bone there as well. Once I had good position of the plate on the bone of the distal fragment and the proximal fragment and I placed a screw into the proximal shaft to hold that, we then set about to reducing the comminuted fragment of the mid shaft. This was challenging again because of the poor quality of bone and the tendency to fragment, but once I had clamps holding things acceptably, I then began filling screw holes distally at first filling the distal cluster and leaving the posterior holes of the distal cluster empty for concern of a protruding too far posteriorly. I continued filling holes proximally until I got to the area of comminution that was so significant that there was no reasonable fixation. At that point, then I chose to place a FiberTape cerclage from Arthrex. We passed this around the fracture fragments and then, according to their technique, did the double wrap and then cinched this down to 60 pounds of pressure. This reduced the comminuted fragments to the plate nicely. We then tied these with 4 alternating half-hitches and cut. I then went proximal and started filling holes proximally. I was able to get 3 bicortical screws in a row just distal to the tip of the prosthesis. The distal most of these 3 was kind of just at the edge of the fracture line; however, so I then continued doing unicortical screws and was able to do 3 more unicortical screws. I did pay careful attention not to have these contacting the hip stem and I did leave the very proximal hole empty to try and decrease the stress riser at the tip of the plate. I did go ahead and reinforce this proximally with another cerclage FiberTape from Arthrex, again, with the double wrapping and tensioning the 60 pounds and then tying. At this point then I checked x-rays of AP and lateral of the proximal and distal and mid fracture. This appeared to have satisfactory position with the hardware. Those images were saved. I then irrigated copiously with IrriSept, after a minute irrigated copiously with saline. We then used a running #1 Vicryl starting in the middle of the IT band split and running this with locking proximally. I tied and cut and then went distally the same way. We then did a final IrriSept irrigation, after a minute final saline irrigation and then 2-0 Monocryl was used for subcu and hina for skin. Xeroform and sterile dressing were applied. The patient was then [facility] and awakened, extubated, and transferred to recovery in stable condition. BJB:juinor Job ID: [id number] Doc ID: [id number] Michael Britton MD
[2020-03-08] MEDS ORDERED: WARFARIN 5 MG TABLET PO ONE (14:00)
[2020-03-08] MEDS: SENNOSIDES 1 TABLET PO SCH (20:16)
[2020-03-08] MEDS: SENNOSIDES/DOCUSATE SODIUM 1 TAB TABLET PO SCH (20:17)
[2020-03-09] MEDS: 0.9 % SODIUM CHLORIDE 1,000 ML IV SCH (02:11)
[2020-03-09] MEDS: LACTATED RINGERS 1,000 ML IV SCH (02:11)
[2020-03-09] MEDS: 0.9 % SODIUM CHLORIDE 10 ML SYRINGE IV SCH (05:32)
[2020-03-09] MEDS: KETOROLAC 30 MG/ML VIAL IV PRN ×2 (05:33→13:35)
[2020-03-09] MEDS: HYDROcodone/APAP 10/325MG TABLET PO PRN ×3 (05:34→13:36)
[2020-03-09 06:24] LABS: Basophils # (Auto) 0.03 K/mcL (0.00-0.20); Basophils % (Auto) 0.6 % (0.0-2.0); Eosinophils # (Auto) 0.13 K/mcL (0.00-0.70); Eosinophils % (Auto) 2.4 % (0.0-7.0); Hematocrit 26.1 % (36.0-48.0); Hemoglobin 8.6 g/dL (12.0-15.0); Lymphocytes % (Auto) 23.9 % (15.0-49.0); Mean Cell Volume 100.8 fL (80.0-100.0); Mean Platelet Volume 9.4 fL (7.4-10.4); Monocytes # (Auto) 0.61 K/mcL (0.10-0.90); Monocytes % (Auto) 11.2 % (1.0-12.0); Neutrophils % (Auto) 61.9 % (38.0-78.0); Platelet Count 151 K/mcL (140-440); RBC 2.59 M/mcL (4.00-5.20); Red Cell Distribution Width 13.1 % (11.5-14.5); WBC 5.5 K/mcL (4.5-11.0)
--- NOTE | 2020-03-09 06:26 | XRay Report ---
INDICATION: Interval Change TECHNIQUE: AP portable upright chest x-ray COMPARISON: Previous examination dated 03/07/2020 FINDINGS:Bilateral shoulder arthroplasty Lungs:Lungs are negative. No focal pulmonary parenchymal infiltrate or mass Heart, vascular:No significant cardiomegaly. Pulmonary vascularity is normal. No pulmonary edema or pulmonary congestion Mediastinum, bella:No mediastinal widening. No hilar mass Pleura:No pleural fluid. No pleural-based mass or calcification Skeletal:Negative. IMPRESSION: 1. No acute abnormality 2. No significant interval change since 03/07/2020 Interpreted and Authenticated by: Cornel Rai 03/09/20
[2020-03-09 07:17] LABS: Prothrombin Time 13.7 sec (11.9-14.5)
[2020-03-09 07:19] LABS: ALT/SGPT 24 U/L (<40); AST/SGOT 64 U/L (<32); Albumin 3.2 gm/dL (3.2-5.2); Albumin/Globulin Ratio 1.7 (1.0-2.3); Alkaline Phosphatase 36 U/L (39-117); Bilirubin,Direct < 0.2 mg/dL (<0.3); Bilirubin,Total 0.3 mg/dL (0.1-1.0); Blood Urea Nitrogen 12 mg/dL (8-23); Carbon Dioxide 27 mmol/L (22-30); Chloride 98 mmol/L (96-108); Globulin 1.9 gm/dL (2.2-3.7); Glomerular Filtration Rate 95; Glucose 97 mg/dL (70-105); Lactate Dehydrogenase 216 U/L (135-225); Phosphorous 2.5 mg/dL (2.5-4.5); Triglycerides 65 mg/dL (<150)
--- NOTE | 2020-03-09 09:27 | Discharge Summary ---
Discharge Provider Provider Patient information: Note initiated : 03/09/20 at 9:24 am Service Date, if different from initiated Date: [] Patient: Demi Gaspar a 65 y/o F admitted on 03/07/20 for Lt Knee Pain After Jumping In Pool. Discharge diagnosis * Left femur fracture-postop day 2. Discharging as per recommendation of orthopedics to SNF for continued post operative/hospitalization rehab. Continue DVT prophylaxis as per orthopedics * Pain management -continue as per orthopedics * Likely osteoporosis-patient will need follow-up with outpatient primary care physician for evaluation of osteoporosis with DEXA scan and possible bisphosphonate with calcium * DVT prophylaxis per orthopedics on Coumadin ' Brief hospital course History of present illness: Ms. Gaspar is a 65 year old F fairly healthy with history of degenerative joint disease. Patient was at the pool and jumped at the deep end however her left leg got caught on the second ledge and ended up with left knee and thigh pain. She was brought into the ER initial work-up was consistent with spinal left femoral diaphysis fracture extending to metaphysis. Orthopedics was consulted and Advised patient to be admitted to the hospitalist service while she will undergo operative intervention later this evening. At the time of my evaluation patient is alert and oriented. She denies active distress. Pain in good control following Dilaudid. She denies lightheadedness dizziness or precipitating events prior to fall. It was a purely mechanical injury due to her left foot getting caught during the jump in the pool. She denies recent hospitalization/history of cardiac stent/history of CVA or diabetes or kidney disease. -postop day 1. Doing well. No overnight events. Pain in good control. Anticipate SNF transfer in 48 hours. Case management coordinating. Continue directed therapies and postoperative care per orthopedics. 03/09-patient doing well. No overnight events. Ongoing physical therapy. Transferring to [facility] for continued posthospitalization rehab. Continue follow-up with orthopedics and maintain postop instructions and recommendations as per orthopedics Date of admission: 03/07/20 10:27 Discharge date: 03/09/20 Primary care physician: Rand Theodore DO Consults: 03/07/20 Consult to Physician [CONS] Stat Comment: Consulting Provider: Renny Collazo Reason For Exam: Physician to Consult Consult to Physician [CONS] Stat Comment: Consulting Provider: Michael Britton Reason For Exam: Physician to Consult Discharge Meds Discharge Medications Home Medications acetaminophen 650 mg tablet,extended release 1,300 mg PO QDAY tab 12/20/19 [History Confirmed 03/07/20 Last Taken 03/06/20 09:00 1300 mg.] ibuprofen-diphenhydramine citrate 200 mg-38 mg tablet 2 cap PO QHS 12/20/19 [History Confirmed 03/07/20 Last Taken Unknown] multivitamin with iron-mineral 1 tab PO DAILY 12/20/19 [History Confirmed 1 05/08/19 Last Taken 03/06/20 09:00 1 tab] naproxen sodium 220 mg tablet 440 mg PO ONCE PRN tab 12/20/19 [History Confirmed 03/07/20 Last Taken 03/06/20 09:00 220 mg.] nabumetone 750 mg tablet 750 mg PO BID 01/05/20 [History Confirmed 03/07/20 Last Taken 01/29/20 09:00 750 mg.] oxybutynin chloride 5 mg tablet,extended release 24 hr 5 mg PO QDAY #30 tab 01/05/20 [Rx Confirmed 03/07/20 Last Taken 03/06/20 09:00] COURSE Hospital Course Hospital course: . Discharge diagnosis: . Time Spent with Patient Time attestation: Total time spent providing and/or coordinating discharge services: EXAM Constitutional Vitals: Temp Pulse Resp BP Pulse Ox 98.1 F 81 16 96/57 97 03/09/20 07:05 03/09/20 07:05 03/09/20 07:05 03/09/20 07:05 03/09/20 07:05 Discharge Data Data Completed and Pending Labs on day of discharge: Labs from last 24 hours 03/09/20 03/09/20 03/09/20 05:38 05:38 05:37 WBC 5.5 RBC 2.59 L Hgb 8.6 L Hct 26.1 L MCV 100.8 H MCH 33.2 MCHC 33.0 RDW 13.1 Plt Count 151 MPV 9.4 Neut % (Auto) 61.9 Lymph % (Auto) 23.9 [place] % (Auto) 11.2 Eos % (Auto) 2.4 Baso % (Auto) 0.6 Lymph # (Auto) 1.30 L [place] # (Auto) 0.61 Eos # (Auto) 0.13 Baso # (Auto) 0.03 Absolute Neutrophils 3.38 PT 13.7 INR 1.0 Sodium 133 Potassium 4.3 Chloride 98 Carbon Dioxide 27 Anion Gap 8.0 BUN 12 Creatinine 0.6 GFR Calculation 95 Glucose 97 Uric Acid 3.0 Calcium 8.0 L Phosphorus 2.5 Magnesium 2.0 Total Bilirubin 0.3 Direct Bilirubin < 0.2 GGT 10 AST 64 H ALT 24 Alkaline Phosphatase 36 L Lactate Dehydrogenase 216 Total Protein 5.1 L Albumin 3.2 Globulin 1.9 L Albumin/Globulin Ratio 1.7 Triglycerides 65 Discharge Plan Patient/Caregiver Discharge Instructions Activity: increase activity as tolerated Diet: Regular Diet Activity Restrictions/Additional Instructions: Postoperative care as per orthopedics PT OT at SNF DVT prophylaxis as per orthopedics on Coumadin Follow-up primary care physician in 2 weeks for evaluation of osteoporosis/DEXA scan/consideration of bisphosphonates and calcium supplements Prescriptions: No Action nabumetone 750 mg tablet 750 mg PO BID RF: 0 oxybutynin chloride 5 mg tablet extended release 24hr 5 mg PO QDAY Qty: 30 RF: 4 acetaminophen [Tylenol 8 Hour] 650 mg tablet extended release 1,300 mg PO QDAY RF: 0 multivitamin with iron-mineral 1 tab PO DAILY RF: 0 naproxen sodium [Aleve] 220 mg tablet 440 mg PO ONCE PRN (Reason: Inflammation) RF: 0 ibuprofen-diphenhydramine cit [Advil PM] 200-38 mg tablet 2 cap PO QHS RF: 0 Follow Up Plan Patient Disposition: Xfer SNF Prognosis: Fair Rehab Potential: Fair I certify that the patient requires SNF services: Yes Overall status at discharge: patient is progressing back to baseline Discharge Orders: Discharge Order (Routine); Ordered 03/09/20 Ordered By: Renny PINZON VTE Deep Vein Thrombosis/Pulmonary Embolism Present on Admission: No
[2020-03-09] MEDS: DOCUSATE SODIUM 100 MG CAPSULE PO SCH (09:54)
[2020-03-09] MEDS: MULTIVIT,THER IRON,CA,FA & MIN 1 TABLET PO SCH (09:54)
[2020-03-09] MEDS: OXYBUTYNIN CHLORIDE 5 MG TAB.XL.24H PO SCH (09:54)
--- NOTE | 2020-03-09 12:53 | Orthopedic Progress Note ---
SUBJECTIVE Subjective Patient information: Note initiated : 03/09/20 at 12:52 pm Service Date, if different from initiated Date: [] Patient: Demi Gaspar 65 y/o F admitted on 03/07/20 for Lt Knee Pain After Jumping In Pool. Chief Complaint: No c/o. Constitutional Vitals: Vital Signs Temp Pulse Resp BP Pulse Ox 98.7 F 94 H 18 113/61 98 03/09/20 12:00 03/09/20 12:00 03/09/20 12:00 03/09/20 12:00 03/09/20 12:00 Period Temp Pulse Resp BP Sys/Mccallum Pulse Ox Last 24 Hr 98.1 F-98.7 F 75-94 16-18 96-115/54-65 94-98 Intake and Output 03/08/20 03/09/20 03/09/20 21:59 05:59 13:59 Intake Total 1600 240 Output Total 1550 700 Balance 50 -700 240 Weight 207 lb 14.4 oz Intake & Output: Intake & Output 03/08/20 03/09/20 03/09/20 21:59 05:59 13:59 Intake Total 1600 240 Output Total 1550 700 Balance 50 -700 240 Weight 207 lb 14.4 oz Intake: Oral 1600 240 Output: Urine Catheter Amount 1300 Void Amount 250 700 Other: Meal Dinner Breakfast Percent of Meal Consumed 100% 100% Feeding Ability Assist with Tray Set Up Independent Urine Appearance Clear Clear Clear Urine Color Bright Yellow Bright Yellow Bright Yellow Urine Odor Normal Normal Normal OBJ DATA Labs CBC & Chem 7: 03/09/20 05:38 03/09/20 05:38 Labs: Abnormal Lab Results 03/09/20 03/09/20 03/08/20 05:38 05:38 06:00 RBC 2.59 L Hgb 8.6 L Hct 26.1 L MCV 100.8 H Lymph # (Auto) 1.30 L Titus # (Auto) Glucose 130 H Calcium 8.0 L 8.1 L Phosphorus 2.4 L AST 64 H 46 H Alkaline Phosphatase 36 L 34 L Total Protein 5.1 L 4.5 L Albumin 2.9 L Globulin 1.9 L 1.6 L Urine Protein Urine Ketones Ur Leukocyte Esterase Urine RBC Urine WBC Urine Mucus 03/08/20 03/07/20 03/07/20 06:00 13:20 09:00 RBC 2.72 L Hgb 8.8 L Hct 26.5 L MCV Lymph # (Auto) 1.44 L Titus # (Auto) 1.05 H Glucose 120 H Calcium Phosphorus AST Alkaline Phosphatase Total Protein Albumin Globulin Urine Protein 30 A Urine Ketones 5 A Ur Leukocyte Esterase 250 A Urine RBC 2 H Urine WBC 14 H Urine Mucus Few A Bandages c/d/i NVI-distal Meds: Medications Acetaminophen (Tylenol) 650 mg PO Q4-6HP PRN; Protocol PRN Reason: Per Pain Protocol/Fever > 101 Hydrocodone Bitart/Acetaminophen ([place] 10/325mg) 0 tab PO Q4HP PRN; Protocol PRN Reason: Per Pain Protocol Last Admin: 03/09/20 09:54 Dose: 2 tab Documented by: Bisacodyl (Dulcolax) 10 mg NH Q2-3DAYS PRN PRN Reason: Constipation Docusate Sodium (Colace) 100 mg PO BID [facility] Last Admin: 03/09/20 09:54 Dose: 100 mg Documented by: Hydromorphone HCl (Dilaudid) 0.25 - 0.5 mg IV Q4HP PRN; Protocol PRN Reason: Per Pain Protocol Last Admin: 03/08/20 03:13 Dose: 0.5 mg Documented by: Potassium Chloride 40 meq/ (Dextrose) 520 mls @ 130 mls/hr IV UD PRN PRN Reason: K+ = or < 3.5 Acetaminophen (Ofirmev) 650 mg in 65 mls @ 130 mls/hr IV Q6HP PRN; Protocol PRN Reason: Per Pain Protocol/Fever > 101 Magnesium Sulfate (Magnesium Sulfate) 2 gm in 50 mls @ 50 mls/hr IV UD PRN PRN Reason: MG = or < 1.7 Sodium Chloride (Sodium Chloride 0.9%) 1,000 mls @ 50 mls/hr IV .Q20H [facility] Stop: 03/09/20 22:37 Last Admin: 03/09/20 02:11 Dose: Not Given Documented by: Iron Carb/Multivit/Morrison/Folic Acid (Multivitamin W/Minerals) 1 tab PO DAILY [facility] Last Admin: 03/09/20 09:54 Dose: 1 tab Documented by: Ketorolac Tromethamine (Toradol) 30 mg IV Q6HP PRN; Protocol PRN Reason: Per Pain Protocol Stop: 12/11/20 18:12 Last Admin: 03/09/20 05:33 Dose: 30 mg Documented by: Magnesium Hydroxide (Milk Of Magnesia) 30 ml PO BIDP PRN PRN Reason: Constipation Melatonin (Melatonin 3mg Tablet) 3 mg PO HSP PRN PRN Reason: Insomnia Morphine Sulfate (Morphine) 0 mg IV Q1HP PRN; Protocol PRN Reason: Per Pain Protocol Ondansetron HCl (Zofran Odt) 4 mg SL Q4-6HP PRN; Protocol PRN Reason: Nausea And Vomiting Ondansetron HCl (Zofran) 4 mg IV Q4-6HP PRN; Protocol PRN Reason: Nausea And Vomiting Last Admin: 03/08/20 00:20 Dose: 4 mg Documented by: Oxybutynin Chloride (Ditropan Xl) 5 mg PO QDAY [facility] Last Admin: 03/09/20 09:54 Dose: 5 mg Documented by: Polyethylene Glycol (Miralax) 17 gm PO DAILYP PRN PRN Reason: Constipation Potassium Chloride (Klor-Con) 40 meq PO DAILYP PRN PRN Reason: K+ < 3.5 Senna (Senokot) 2 tab PO [facility] Last Admin: 03/08/20 20:16 Dose: 2 tab Documented by: Senna/Docusate Sodium (Senna Plus Tablet) 1 tab PO [facility] Last Admin: 03/08/20 20:17 Dose: Not Given Documented by: Sodium Biphosphate/Sodium Phosphate (Fleets Adult) 1 dose NH Q3-4DAYS PRN PRN Reason: Constipation Sodium Chloride (Saline Flush) 10 ml IV Q8 [facility] Last Admin: 03/09/20 05:32 Dose: 10 ml Documented by: Throat Lozenges (Cepacol) 1 lozenge PO PRN PRN PRN Reason: Sore Throat Last Admin: 03/08/20 10:20 Dose: 1 lozenge Documented by: Warfarin Sodium (Coumadin Per Pharmacy) 1 order PO [facility] [place] Sodium (Coumadin) 5 mg PO ONCE@1400 ONE Stop: 03/09/20 14:01 A/P Assessment and plan (1) Closed femur fracture: Status: Acute Comment: Mobilize with PT Tentative discharge to SNF v Home. Qualifiers: Encounter type: initial encounter Femur location: distal epiphysis Fracture alignment: displaced Laterality: left Qualified Code(s): S72.442A - Displaced fracture of lower epiphysis (separation) of left femur, initial encounter for closed fracture Time Spent With Patient Time: Total time spent is greater than 50% in coordination of care (as documented) at patient's floor/unit and/or counseling patient:
--- NOTE | 2020-03-09 12:55 | Discharge Summary ---
Discharge Provider Provider Patient information: Note initiated : 03/09/20 at 12:53 pm Service Date, if different from initiated Date: [] Patient: Demi Gaspar 65 y/o F admitted on 03/07/20 for Lt Knee Pain After Jumping In Pool. Chief Complaint: [] Date of admission: 03/07/20 10:27 Discharge date: 03/09/20 Primary care physician: Rand Theodore DO Consults: 03/07/20 Consult to Physician [CONS] Stat Comment: Consulting Provider: Renny Collazo Reason For Exam: Physician to Consult Consult to Physician [CONS] Stat Comment: Consulting Provider: Michael Britton Reason For Exam: Physician to Consult COURSE Hospital Course Hospital course: discharged to snf post-op day 2 for jo prosthetic femur fx Discharge diagnosis: L femur jo prosethic fx Time Spent with Patient Time attestation: Total time spent providing and/or coordinating discharge services: Discharge Plan Patient/Caregiver Discharge Instructions Activity: increase activity as tolerated Diet: Regular Diet Instructions: ORIF of a Leg Fracture (DC) Activity Restrictions/Additional Instructions: Postoperative care as per orthopedics. PT OT at SNF. DVT prophylaxis as per orthopedics on Coumadin. Follow-up primary care physician in 2 weeks for evaluation of osteoporosis/DEXA scan/consideration of bisphosphonates and calcium supplements. Toe touch weight bearing. You have the silver dressing, leave in place for 14 days then remove. You may shower with dressing on, pat dry after shower. You may start showering on post op day #2. . To avoid constipation while taking any narcotic pain medication, take an over the counter stool softener/laxative. Use your ice packs as directed. Ice and elevation will help with pain and swelling. If you have any questions or concerns call your orthopedic surgeon before going to the emergency room. [facility] has a civil engineering design draftsperson physician 24 hours per day/7 days per week and can be reached at [phone]. Call for fevers above 100.5 or pain not controlled by medication. Your prescriptions are with your discharge information. Some medications were electronically transmitted to your pharmacy of choice. Take Aspirin as prescribed to prevent blood clots (see medication list). This discharge packet is provided to you to help keep you informed about your care. We want to ensure you get everything you need when you go home. You will also be receiving a call from us in a few days to follow up with you and see how you are doing since your discharge. This gives us a chance to listen to any concerns you maybe experiencing since you were discharged or any additional needs you may have, as well as providing us feedback on your care experience. We strive to always provide excellent care and thank you for your feedback and for choosing [facility]. Prescriptions: New Warfarin Per Pharmacy [Coumadin Per Pharmacy] 1 order PO UD Qty: 30 RF: 0 hydrocodone-acetaminophen 10-325 mg tablet 1 - 2 tab PO Q4-6HP PRN (Reason: pain) Qty: 60 RF: 0 Continued nabumetone 750 mg tablet 750 mg PO BID RF: 0 oxybutynin chloride 5 mg tablet extended release 24hr 5 mg PO QDAY Qty: 30 RF: 4 acetaminophen [Tylenol 8 Hour] 650 mg tablet extended release 1,300 mg PO QDAY RF: 0 multivitamin with iron-mineral 1 tab PO DAILY RF: 0 Discontinued naproxen sodium [Aleve] 220 mg tablet 440 mg PO ONCE PRN (Reason: Inflammation) RF: 0 ibuprofen-diphenhydramine cit [Advil PM] 200-38 mg tablet 2 cap PO QHS RF: 0 Other Ambulatory Orders: OT Discharge Order (Routine) Location: None Selected Ordered By: Renny Collazo Physical Therapy at Discharge - General (Routine) Location: None Selected Ordered By: Renny Collazo Physical Therapy Discharge Order (Routine) Location: None Selected Ordered By: Pravin Son (ONCE) Location: None Selected Ordered By: Pravin Loaiza Follow Up Plan Follow up with: Michael Britton MD [Physician] - (Please call and schedule surgical follow up to be seen in 10-14 days.) Rand Theodore DO [Primary Care Provider] - (Please call and schedule a hosital follow up appointment.) Patient Disposition: Xfer SNF Prognosis: Fair Rehab Potential: Fair I certify that the patient requires SNF services: Yes Overall status at discharge: patient is progressing back to baseline Discharge Orders: Discharge Order (Routine); Ordered 03/09/20 Ordered By: Renny Collazo Pending Pending Pending: Resuscitation Status Do Not Resuscitate Diet Regular Diet Start ThuMar 07 1810 Hydrocodone Bitart/Acetaminophen ([place] 10/325mg) 0 tab PO Q4HP PRN; Protocol PRN Reason: Per Pain Protocol Last Admin: 03/09/20 09:54 Dose: 2 tab Documented by: [email or web address] Admin: 03/09/20 05:34 Dose: 2 tab Documented by: Admin: 03/08/20 23:55 Dose: 2 tab Documented by: Admin: 03/08/20 19:35 Dose: 2 tab Documented by: Admin: 03/08/20 15:34 Dose: 2 tab Documented by: Admin: 03/08/20 10:06 Dose: 1 tab Documented by: [facility] Admin: 03/08/20 05:49 Dose: 1 tab Documented by: Admin: 03/08/20 00:26 Dose: 1 tab Documented by: STEVEN Docusate Sodium (Colace) 100 mg PO BID [facility] Last Admin: 03/09/20 09:54 Dose: 100 mg Documented by: [id number] Admin: 03/08/20 20:16 Dose: 100 mg Documented by: Admin: 03/08/20 09:01 Dose: 100 mg Documented by: [facility] Admin: 03/07/20 21:17 Dose: Not Given Documented by: STEVEN Hydromorphone HCl (Dilaudid) 0.25 - 0.5 mg IV Q4HP PRN; Protocol PRN Reason: Per Pain Protocol Last Admin: 03/08/20 03:13 Dose: 0.5 mg Documented by: Admin: 03/07/20 21:10 Dose: 0.25 mg Documented by: Admin: 03/07/20 13:57 Dose: 0.25 mg Documented by: Yasmine Admin: 03/07/20 11:19 Dose: 0.25 mg Documented by: DIRK Sodium Chloride (Sodium Chloride 0.9%) 1,000 mls @ 50 mls/hr IV .Q20H [facility] Stop: 03/09/20 22:37 Last Admin: 03/09/20 02:11 Dose: Not Given Documented by: Admin: 03/08/20 05:55 Dose: Not Given Documented by: Admin: 03/07/20 11:44 Dose: Not Given Documented by: QASIM Iron Carb/Multivit/Tin Pourer/Folic Acid (Multivitamin W/Minerals) 1 tab PO DAILY [facility] Last Admin: 03/09/20 09:54 Dose: 1 tab Documented by: [id number] Admin: 03/08/20 09:01 Dose: 1 tab Documented by: [facility] Ketorolac Tromethamine (Toradol) 30 mg IV Q6HP PRN; Protocol PRN Reason: Per Pain Protocol Stop: 03/09/20 18:12 Last Admin: 03/09/20 05:33 Dose: 30 mg Documented by: Admin: 03/08/20 19:34 Dose: 30 mg Documented by: Admin: 03/08/20 02:42 Dose: 30 mg Documented by: Admin: 03/07/20 20:13 Dose: 30 mg Documented by: STEVEN Ondansetron HCl (Zofran) 4 mg IV Q4-6HP PRN; Protocol PRN Reason: Nausea And Vomiting Last Admin: 03/08/20 00:20 Dose: 4 mg Documented by: Admin: 03/07/20 20:17 Dose: 4 mg Documented by: STEVEN Oxybutynin Chloride (Ditropan Xl) 5 mg PO QDAY [facility] Last Admin: 03/09/20 09:54 Dose: 5 mg Documented by: Admin: 03/08/20 09:02 Dose: 5 mg Documented by: Yasmine Senna (Senokot) 2 tab PO HS [facility] Last Admin: 03/08/20 20:16 Dose: 2 tab Documented by: Admin: 03/07/20 21:17 Dose: Not Given Documented by: STEVEN Senna/Docusate Sodium (Senna Plus Tablet) 1 tab PO HS [facility] Last Admin: 03/08/20 20:17 Dose: Not Given Documented by: Admin: 03/07/20 21:17 Dose: Not Given Documented by: STEVEN Sodium Chloride (Saline Flush) 10 ml IV Q8 [facility] Last Admin: 03/09/20 05:32 Dose: 10 ml Documented by: Admin: 03/08/20 20:17 Dose: 10 ml Documented by: Admin: 03/08/20 14:03 Dose: 10 ml Documented by: Admin: 03/08/20 05:55 Dose: 10 ml Documented by: Admin: 03/07/20 22:29 Dose: 10 ml Documented by: Admin: 03/07/20 16:05 Dose: Not Given Documented by: DIRK Throat Lozenges (Cepacol) 1 lozenge PO PRN PRN PRN Reason: Sore Throat Last Admin: 03/08/20 10:20 Dose: 1 lozenge Documented by: Admin: 03/08/20 00:47 Dose: 1 lozenge Documented by: STEVEN Shift Summary 03/09/20 04:14 Shift Summary by Birdie Alejandro The patient is very pleasant, alert and oriented times four, up out of bed with a FWW/gaitbelt and 1 SBA with toe touch weight bearing status and has very good safety awareness. Dressing to left lateral femur fracture repair site CDI, lower leg elevate on pillows and ice packs applied per MD orders and tolerated well. She received 2 Hydrocodone 10/325 mg tabs every 4 hours PRN per her request and Toradol twice and pain was well managed. Denied nausea, voiding quantity sufficient via restroom, tolerating PO well, IV SL to her left forearm. CMS int act, 2+ edema to left upper thigh/incision site with ecchymosis post fall with injury, VSS, RA. Patient wishes to D/C to rehab facility and is pending a referral to [facility], will update shift summary report at bedside. Initialized on 03/09/20 04:14 - END OF NOTE
[2020-03-09] MEDS ORDERED: WARFARIN 5 MG TABLET PO ONE (14:00)
--- NOTE | 2020-03-19 14:06 | Consultation ---
DATE OF CONSULTATION: 03/07/2020 CHIEF COMPLAINT: Left leg pain. HISTORY OF PRESENT ILLNESS: This is a 65-year-old female who was getting ready to jump in the pool and caught her foot on the ledge and had a twisting movement. She had sudden onset of severe pain and inability to bear weight. She was taken to the Emergency Department. Her pain is better with immobilization, worse with movement. She denies any other associated injuries or loss of consciousness. She denies numbness or tingling. PAST MEDICAL HISTORY: Positive for arthritis and urinary incontinence. PAST SURGICAL HISTORY: Positive for tubal ligation, bilateral shoulder replacements, total hip replacement. MEDICATIONS: 1. Acetaminophen. 2. Ibuprofen. 3. Multivitamin. 4. Naproxen. 5. Nabumetone 750 mg b.i.d. 6. Oxybutynin 5 mg a day. ALLERGIES: No known drug allergies. SOCIAL HISTORY: She is retired, . No smoking, occasional alcohol use. FAMILY HISTORY: Positive for mother and father with dementia. PHYSICAL EXAMINATION: VITAL SIGNS: At admission, temperature 97.7, pulse 78, respirations 20, blood pressure 141/79, and oxygen saturation 97% on room air. GENERAL: She appears her stated age, in no acute distress. She is oriented to person and place. Mood and affect are appropriate. EXTREMITIES: Bilateral upper extremities and right lower extremities show no evidence of significant injury and are normal to inspection, range of motion and stability and strength. Left lower extremity does show a visible deformity with swelling. On inspection, she has limited range of motion secondary to pain. There is gross instability of the fracture. Strength is 3/5 with toe flexion and extension distally. Sensation to light touch is grossly intact. Pedal pulses are palpable. DIAGNOSTIC STUDIES: X-rays reviewed shows a comminuted distal femoral shaft fracture with a visible tip of a total hip arthroplasty stem and noted in the proximal end of the x-ray. She also was noted to have very severe knee osteoarthritis. IMPRESSION: Closed left comminuted distal femoral shaft fracture, periprosthetic around a hip stem in a 65-year-old female who has profound osteoarthritis. PLAN: I discussed with her that I recommend we proceed with open treatment and internal fixation of the left periprosthetic distal femoral shaft fracture with plate and screw fixation. I did discuss with her given the tip stem proximally we will need to do several cerclage wires or SutureTape to get fixation proximally. Risks of surgery discussed with her include, but not limited to, bleeding; infection; injury to nerves, blood vessels, other surrounding structures, anesthetic risks; nonunion or malunion of fracture; failure of hardware fixation; stiffness; pain, the possibility of needing further surgery. She understood these risks and wished to proceed. BJB:junior Job ID: [id number] Doc ID: [id number] Michael Britton MD
== END 2020-03-09 13:50 | DRG 482 ==
LOC: ED 08:05 → MEDSUR 10:27
PROVIDERS: ADMIT Internal Medicine; ATTEND Internal Medicine